=== PATIENT | female | born 1940 | race Caucasian/White ===

== ENCOUNTER 2025-03-18 09:34 | Emergency (ER) | payer MEDICARE ==
[~2025-03-18] VITALS: Ht 160 cm; Wt 64.0 kg
[2025-03-18 11:21] VITALS: BP 129/62; TEMP 98; O2SAT 97
== END 2025-03-18 11:25 | disposition home or self-care (01) ==
LOC: ER 09:42
DX: S00.01XA Abrasion of scalp, initial encounter (principal); F03.90 Unspecified dementia, unspecified severity, without behavioral disturbance, psychotic disturbance, mood disturbance, and anxiety; I10 Essential (primary) hypertension; J45.909 Unspecified asthma, uncomplicated; W01.0XXA Fall on same level from slipping, tripping and stumbling without subsequent striking against object, initial encounter; Y93.89 Activity, other specified; Y92.89 Other specified places as the place of occurrence of the external cause; Y99.8 Other external cause status
CPT/HCPCS: 70450-TC